=== PATIENT | female | born 1970 | race Caucasian/White ===

== ENCOUNTER 2018-02-25 14:30 | Inpatient (IN) | payer OTHER ==
[2018-02-25] MEDS ORDERED: Ativan 2 MG/1 ML VIAL IV PRN (15:19)
[2018-02-25] MEDS ORDERED: APRESOLINE 20 MG/ML INJ ONE (15:23)
[2018-02-25] MEDS: APRESOLINE 20 MG/ML INJ IV PRN ×2 (15:24→19:50)
[2018-02-25 15:30] LABS: BASOPHIL % 0.2 % (0.0-0.4); Basophil (Absolute #) 0.02 (0-0.4); Eosinophil % 3.5 % (0.00-5.0); Granulocyte Absolute (ANC) 6.35 (1.4-6.9); Granulocytes % 73.2 % (36.0-66.0); Hematocrit 35.4 % (35-47); Hemoglobin 12.5 gm/dl (12.0-16.0); Lymphocyte (Absolute #) 1.54 (1.0-4.6); Lymphocytes % 17.7 % (24.0-44.0); Mean Cell Volume 89.4 fl (78-100); Mean Corpuscular Hgb Concent. 35.3 g/dl (32-36); Mean Platelet Volume 11.2 fl (6-9.5); Monocyte (Absolute #) 0.47 (0.0-1.3); Monocytes % 5.4 % (0.0-12.0); Platelet Count 237 K/mm3 (150-450); Red Blood Count 3.96 M/mm3 (4.1-5.4); White Blood Count 8.7 K/mm3 (4.0-10.5)
[2018-02-25 15:32] LABS: Mean Corpuscular Hemoglobin 31.5 pg (26-32)
[2018-02-25 15:49] LABS: ALBUMIN 3.8 g/dL (3.5-5.0); ANION GAP 16.1 MEQ/L (5-15); BILIRUBIN,TOTAL 0.7 mg/dL (0.2-1.3); Calcium 8.7 mg/dL (8.4-10.2); Creatinine 1 3.74 mg/dL (0.52-1.04); Potassium 4.1 mmol/L (3.5-5.1); Total Protein 7.1 g/dL (6.3-8.2)
--- NOTE | 2018-02-25 15:53 | XRAY ---
Indication: Vision loss left eye for one week. High blood pressure. History of mini strokes. Multiple contiguous axial images obtained through the head without contrast. Comparison: January 06, 2016. Stable mild periventricular degenerative micro-ischemia bilaterally and remote left external capsule lacunar infarct. No acute intracranial hemorrhage, abnormal extra-axial fluid collection, or mass effect. Fourth ventricle is midline without hydrocephalus. [place] white matter differentiation preserved. Bony calvarium intact. Visualized paranasal sinuses and mastoid air cells are clear. Impression: 1. Stable degenerative micro-ischemia and remote left external capsule lacunar infarct. 2. No new or acute intracranial abnormalities. CTDI 69.52
--- NOTE | 2018-02-25 16:39 | XRAY ---
Indication: Possible stroke. Headache. Elevated blood pressure. Sagittal, coronal, and axial MRI brain was performed without contrast using T1, T2, FLAIR, diffusion, and ADC sequences. Comparison: None There are moderate periventricular confluence of T2 signal intensities bilaterally, a few appearing perpendicular to the corpus callosum (AKA Soto's finger). Additional T2 signal seen of the corpus callosum and brainstem lorin. Findings favor demyelinating process such as multiple sclerosis and less likely degenerative micro-ischemia. Tiny remote appearing lacunar infarcts in the left anterior hearn radiata and adjacent to both frontal horns, largest 7 mm adjacent to the left frontal horn. Additional tiny remote lacunar infarct in the left basal ganglia and right lorin. No acute intracranial hemorrhage, abnormal extra-axial fluid collection, or hydrocephalus. Diffusion images are negative for restricted signal. Fourth ventricle is midline. No hydrocephalus. 7/8 cranial nerve complex bilaterally symmetric. Normal flow void signal within the major intracerebral circulation. Normal appearing craniocervical junction and sella turcica. The orbits are bilaterally symmetric. Paranasal sinuses are clear. Impression: 1. [place] of T2 signal intensities in the periventricular white matter, corpus callosum, and brainstem favoring multiple sclerosis. 2. Multifocal remote lacunar infarcts as detailed. 2. No acute intracranial abnormalities or evidence for evolving large vessel territorial stroke.
[2018-02-25] MEDS ORDERED: NORVASC 5 MG PO ONE (17:13)
--- NOTE | 2018-02-25 17:23 | PCM.HP ---
History of Present Illness - Chief Complaint Chief Complaint: hypertensive emergency Date: 02/25/18 History of Present Illness: is a 47 year old female. presented to the office today after losing her vision last week in her left eye. She reports she was in penitentiary for 1 year for "my put me there for selling drugs but I wasn't doing that". She was on medications at the penitentiary she states but has not taken any since being released 1 year ago. She denies headache currently. Her vision has worsened. She denies chest pain or shortness of breath. She presented to ED 2 years ago after her eye doctor saw retinal hemorrhages and she had a blood pressure of 240 in the office. She was started on medication and was controlled at the follow up visit and went for a stress test that showed global hypokinesia but was lost to follow up after this. She has not had any evaluation of her renal function and unclear her baseline. She denies any use of illicit substances currently. She has had a new rash that is itching that she thinks was outside and had this start over the weekend. - Review of Systems Constitutional: No Fever, No Chills Eyes: Vision Changes Ears, Nose, & Throat: No Symptoms Respiratory: No Cough, No Short Of Breath Cardiac: No Chest Pain, No Edema, No Syncope Abdominal/Gastrointestinal: No Abdominal Pain, No Nausea, No Vomiting, No Diarrhea Genitourinary Symptoms: No Dysuria Musculoskeletal: Back Pain, Joint Pain, No Neck Pain Skin: Rash Neurological: No Dizziness, No Focal Weakness, No Gait Changes, No Sensory Changes Psychological: No Symptoms Endocrine: No Symptoms Hematologic/Lymphatic: No Symptoms Immunological/Allergic: No Symptoms Medications & Allergies Home Medications: Home Medication List No Reportable Medications [No Reported Medications] 02/25/18 [History Confirmed 02/25/18] Allergies/Adverse Reactions: Allergies Allergy/AdvReac Type Severity Reaction Status Date / Time ciprofloxacin [From Cipro] Allergy Verified 01/06/16 17:33 ciprofloxacin HCl Allergy Verified 01/06/16 17:33 [From Cipro] ketoprofen Allergy Verified 01/07/16 06:30 latex Allergy Verified 01/07/16 06:29 morphine Allergy Verified 01/07/16 06:37 prednisone Allergy Verified 01/07/16 06:29 - Past Medical History Past Medical History: Yes Neurological History: TIA ENT History: No Pertinent History Cardiac History: Hypertension Respiratory History: Asthma Endocrine Medical History: Diabetes Type II Musculoskelatal History: Arthritis GI Medical History: No Pertinent History History: No Pertinent History Pyscho-Social History: Anxiety, Depression Reproductive Disorders: No Pertinent History - Female History Are you now?: No - Past Surgical History Past Surgical History: Yes Neuro Surgical History: No Pertinent History Cardiac History: No Pertinent History Respiratory Surgery: No Pertinent History GI Surgical History: No Pertinent History Genitourinary Surgical Hx: No Pertinent History Musculskeletal Surgical Hx: No Pertinent History Female Surgical History: Section, Tubal Ligation, Other Other Surgical History: enlarged lymph node on neck removed - Social History Smoking Status: Former smoker Exposure to second hand smoke: No Alcohol: Rarely Drug Use: none - Physical Exam Vital Signs: Vital Signs - 24 hr Pulse Resp BP Pulse Ox 02/25/18 14:49 94 H 18 225/136 97 General Appearance: no apparent distress, alert Neurologic Exam: alert, oriented x 3, cooperative, normal mood/affect, nml cerebellar function, nml station & gait, sensation nml, abnormal mh teacher II-XII, No motor deficits Eye Exam: PERRL/EOMI, eyes nml inspection, No scleral icterus, No pale conjunctivae Ears, Nose, Throat Exam: normal ENT inspection, TMs normal, pharynx normal, moist mucous membranes Neck Exam: normal inspection, non-tender, supple, full range of motion Respiratory Exam: normal breath sounds, lungs clear, No respiratory distress Cardiovascular Exam: regular rate/rhythm, normal heart sounds, normal peripheral pulses Gastrointestinal/Abdomen Exam: soft, normal bowel sounds, No tenderness, No mass Back Exam: normal inspection, normal range of motion, No CVA tenderness, No vertebral tenderness Extremity Exam: normal inspection, normal range of motion, pelvis stable Skin Exam: normal color, warm, dry, rash (bilateral upper extremities with macular papular pruritic rash) Lymphatic Exam: No adenopathy Results - Labs Lab/Micro Results: Lab Results-Last 24 Hours 02/25/18 02/25/18 02/25/18 Range/Units 15:10 15:10 15:10 WBC 8.7 (4.0-10.5) K/mm3 RBC 3.96 L (4.1-5.4) M/mm3 Hgb 12.5 (12.0-16.0) gm/dl Hct 35.4 (35-47) % MCV 89.4 (78-100) fl MCH 31.5 (26-32) pg MCHC 35.3 (32-36) g/dl RDW 13.0 (11.5-14.0) % Plt Count 237 (150-450) K/mm3 MPV 11.2 H (6-9.5) fl Gran % 73.2 H (36.0-66.0) % Eos # (Auto) 0.30 (0-0.5) Absolute Lymphs (auto) 1.54 (1.0-4.6) Absolute Monos (auto) 0.47 (0.0-1.3) Lymphocytes % 17.7 L (24.0-44.0) % Monocytes % 5.4 (0.0-12.0) % Eosinophils % 3.5 (0.00-5.0) % Basophils % 0.2 (0.0-0.4) % Absolute Granulocytes 6.35 (1.4-6.9) Basophils # 0.02 (0-0.4) ESR 39 H (0-20) mm/hr Sodium 139 (137-145) mmol/L Potassium 4.1 (3.5-5.1) mmol/L Chloride 110 H (98-107) mmol/L Carbon Dioxide 17 L (22-30) mmol/L Anion Gap 16.1 H (5-15) MEQ/L BUN 48 H (7-17) mg/dL Creatinine 3.74 H (0.52-1.04) mg/dL Estimated GFR 13.8 ML/MIN Glucose 178 H (74-106) mg/dL Calcium 8.7 (8.4-10.2) mg/dL Total Bilirubin 0.70 (0.2-1.3) mg/dL AST 19 (14-36) U/L ALT 14 (0-35) U/L Alkaline Phosphatase 78 (38-126) U/L Serum Total Protein 7.1 (6.3-8.2) g/dL Albumin 3.8 (3.5-5.0) g/dL TSH 3rd Generation (0.47-4.68) mIU/L / Range/Units 15:10 WBC (4.0-10.5) K/mm3 RBC (4.1-5.4) M/mm3 Hgb (12.0-16.0) gm/dl Hct (35-47) % MCV (78-100) fl MCH (26-32) pg MCHC (32-36) g/dl RDW (11.5-14.0) % Plt Count (150-450) K/mm3 MPV (6-9.5) fl Gran % (36.0-66.0) % Eos # (Auto) (0-0.5) Absolute Lymphs (auto) (1.0-4.6) Absolute Monos (auto) (0.0-1.3) Lymphocytes % (24.0-44.0) % Monocytes % (0.0-12.0) % Eosinophils % (0.00-5.0) % Basophils % (0.0-0.4) % Absolute Granulocytes (1.4-6.9) Basophils # (0-0.4) ESR (0-20) mm/hr Sodium (137-145) mmol/L Potassium (3.5-5.1) mmol/L Chloride (98-107) mmol/L Carbon Dioxide (22-30) mmol/L Anion Gap (5-15) MEQ/L BUN (7-17) mg/dL Creatinine (0.52-1.04) mg/dL Estimated GFR ML/MIN Glucose (74-106) mg/dL Calcium (8.4-10.2) mg/dL Total Bilirubin (0.2-1.3) mg/dL AST (14-36) U/L ALT (0-35) U/L Alkaline Phosphatase (38-126) U/L Serum Total Protein (6.3-8.2) g/dL Albumin (3.5-5.0) g/dL TSH 3rd Generation 1.800 (0.47-4.68) mIU/L - Radiology Impressions Radiology Exams & Impressions: Radiology Procedures Category Date Time Status ECHO W/2D AND DOPPLER [US] Routine Exams 02/25/18 Ordered HEAD WITHOUT CONTRAST [CT] Stat Exams 02/25/18 15:15 Completed MRI BRAIN W/O CONTRAST [MRI] Routine Exams 02/25/18 15:19 Completed Assessment/Plan (1) Acute renal failure Current Visit: Yes Status: Acute Assessment & Plan: likely secondary to her uncontrolled blood pressure and likely has progressed to chronic renal failure with unreliable follow up and severity of symptoms check work up now and will plan f/u with nephrology uds is negative will get renal ultrasound, urine lytes, prot/cret, urine eosinophils (dip + protein and wbc), sophia, anca, urine spep, upep, free lyte chains. also checking high risk panel with her reported history of being jailed for 1 year due to drug offense but denies any drug use (2) Hypertensive emergency Current Visit: Yes Status: Acute Assessment & Plan: prn hydralazine, labetalol, start amlodipine back try to cautiously lower bp transition back to oral medications Code(s): I16.1 - HYPERTENSIVE EMERGENCY (3) Cardiomyopathy Current Visit: Yes Status: Chronic Assessment & Plan: repeat echocardiogram get cardiology f/u as well as outpatient Code(s): I42.9 - CARDIOMYOPATHY, UNSPECIFIED (4) LVH (left ventricular hypertrophy) Current Visit: Yes Status: Chronic Code(s): I51.7 - CARDIOMEGALY (5) Ischemic stroke Current Visit: Yes Status: Chronic Assessment & Plan: appears old lacunar on the MRI will use aspirin possible vision symptoms from the white matter lesions verses worsening of retinal hemorrhages that she had previously Code(s): I63.9 - CEREBRAL INFARCTION, UNSPECIFIED (6) Visual loss Current Visit: Yes Status: Acute Onset Date: ~02/25/18 Code(s): H54.7 - UNSPECIFIED VISUAL LOSS (7) White matter disease Current Visit: Yes Status: Acute Assessment & Plan: with possibility of MS doing the testing for hiv and myeloma will set up outpatient f/u when bp controlled with neurology to further discuss differential and possibly multiple sclerosis diagnosis Code(s): R90.82 - WHITE MATTER DISEASE, UNSPECIFIED
[2018-02-25] MEDS ORDERED: BENADRYL 25 MG CAPSULE PO ONE (17:30)
[2018-02-25] MEDS: Nicoderm CQ 21 MG TOP SCH (17:43)
[2018-02-25 17:57] LABS: Appearance HAZY (CLEAR); Bacteria FEW /HPF (NEGATIVE); Bilirubin NEGATIVE (NEGATIVE); Blood 50 Ery/ul (0-5); Epithelial Cells FEW /HPF (FEW); Glucose 250 mg/dL (NEGATIVE); Ketones SMALL (NEGATIVE); Leukocyte Esterase 2+ (NEGATIVE); Nitrite NEGATIVE (NEGATIVE); Protein,Urine Dip 500 (Negative); RBC 0-2 /HPF (0-2); Urobilinogen NORMAL mg/dL (0-1)
[2018-02-25] MEDS ORDERED: ENOXAPARIN SODIUM SQ SCH (18:00)
[2018-02-25 18:29] LABS: Amphetamine,Urine NEGATIVE (NEGATIVE); Barbiturate,Urine NEGATIVE (NEGATIVE); Benzodiazepine,Urine NEGATIVE (NEGATIVE); Cocaine,Urine NEGATIVE (NEGATIVE); Methadone,Urine NEGATIVE (NEGATIVE); Opiate,Urine NEGATIVE (NEGATIVE); PCP,Urine NEGATIVE (NEGATIVE); THC,Urine NEGATIVE (NEGATIVE)
[2018-02-25] MEDS ORDERED: TRANDATE 20 MG/5 ML SYRINGE IV PRN (19:05)
[2018-02-25] MEDS: TYLENOL 325 MG PO PRN (19:49)
[2018-02-25] MEDS: ECOTRIN 81 MG PO SCH (19:50)
[2018-02-26] MEDS: TYLENOL 325 MG PO PRN ×2 (00:01→08:11)
[2018-02-26] MEDS: APRESOLINE 20 MG/ML INJ IV PRN (00:02)
[2018-02-26 04:45] LABS: Hematocrit 35.7 % (35-47); Hemoglobin 12.8 gm/dl (12.0-16.0); Mean Cell Volume 90.2 fl (78-100); Mean Corpuscular Hemoglobin 32.3 pg (26-32); Mean Corpuscular Hgb Concent. 35.9 g/dl (32-36); Mean Platelet Volume 11.3 fl (6-9.5); Platelet Count 246 K/mm3 (150-450); Red Blood Count 3.96 M/mm3 (4.1-5.4); Red Cell Distribution Width 13.1 % (11.5-14.0); White Blood Count 11.1 K/mm3 (4.0-10.5)
[2018-02-26 04:47] LABS: ANION GAP 14.4 MEQ/L (5-15); Calcium 8.3 mg/dL (8.4-10.2); Creatinine 1 4.01 mg/dL (0.52-1.04); Potassium 4.1 mmol/L (3.5-5.1)
[2018-02-26] MEDS ORDERED: LIPITOR 40MG PO STA (07:51)
--- NOTE | 2018-02-26 08:02 | PCM.DS ---
Discharge Summary Date of Admission: 02/25/18 15:12 Date of Discharge: 02/26/2018 Admitting Physician: CLARA JOHNSON Primary Care Provider: CLARA JOHNSON Allergies Allergies ciprofloxacin [From Cipro] Allergy (Verified 01/06/16 17:33) ciprofloxacin HCl [From Cipro] Allergy (Verified 01/06/16 17:33) ketoprofen Allergy (Verified 01/07/16 06:30) latex Allergy (Verified 01/07/16 06:29) morphine Allergy (Verified 01/07/16 06:37) prednisone Allergy (Verified 01/07/16 06:29) Hospital Summary - Hospital Course Hospital Course: Patient presented to office yesterday afternoon with needing paperwork completed but also noted she had difficulty seeing out of her left eye 1 week prior, had not been to the doctor in 2 years and was not taking any of her medications. She was found to have a blood pressure of 240/140 and was sent for admission to ICU for rule out stroke. She was not having any chest pain at that time and was only having the visual loss that had occurred 1 week prior. On admission she was found to be in renal failure, had an MRI with old lacunar infarcts and white matter disease consistent with MS. She had her bp brought down with po amlodipine, iv hydralazine and iv labetalol. It initially did not improve much then went to 160's over 90 around 01:00 and she began developing substernal chest pain. EKG was done with no changes from admission and troponin was elevated. Her repeat troponin this am was trending upward but chest pain has resolved. She is now having a headache. Her creatinine has trended upward slightly as well. SHe had echocardiogram done this am with wall motion abnormalities and a renal ultrasound with official results pending. for her renal failure she has ultrasound, upep, spep, free light chains, sophia, p- anca, urine eosinophil smear and electrolytes pending she also has hiv, hep b, hep c pending. she was given aspirin on admission and now given metoprolol and atorvastatin she is on lovenox at ppx dose Discussed the case with cardiology Dr. Edge who agreed to consult at [facility] as well as with [facility] hospitalist Dr. Graham who agreed to accept the patient for transfer to progressive care unit at 09:45 - Vitals & Intake/Output Vital Signs: Vital Signs Temperature 98.3 F 05/15/18 07:15 Pulse Rate 82 02/26/18 07:15 Respiratory Rate 24 02/26/18 07:15 Blood Pressure 171/96 02/26/18 07:15 O2 Sat by Pulse Oximetry 96 02/26/18 07:15 Oxygen-Last Documented O2 Percentage 2 Liters = 28% Intake & Output: Intake & Output 02/23/18 02/24/18 02/25/18 02/26/18 11:59 11:59 11:59 11:59 Intake Total 1400 Output Total 1700 Balance -300 Weight 88.6 kg - Lab Result Diagrams: 02/26/18 04:15 02/26/18 04:15 Lab Results-Last 24 Hrs: Lab Results-Last 24 Hours 02/25/18 02/25/18 02/25/18 Range/Units 15:10 15:10 15:10 WBC 8.7 (4.0-10.5) K/mm3 RBC 3.96 L (4.1-5.4) M/mm3 Hgb 12.5 (12.0-16.0) gm/dl Hct 35.4 (35-47) % MCV 89.4 (78-100) fl MCH 31.5 (26-32) pg MCHC 35.3 (32-36) g/dl RDW 13.0 (11.5-14.0) % Plt Count 237 (150-450) K/mm3 MPV 11.2 H (6-9.5) fl Gran % 73.2 H (36.0-66.0) % Eos # (Auto) 0.30 (0-0.5) Absolute Lymphs (auto) 1.54 (1.0-4.6) Absolute Monos (auto) 0.47 (0.0-1.3) Lymphocytes % 17.7 L (24.0-44.0) % Monocytes % 5.4 (0.0-12.0) % Eosinophils % 3.5 (0.00-5.0) % Basophils % 0.2 (0.0-0.4) % Absolute Granulocytes 6.35 (1.4-6.9) Basophils # 0.02 (0-0.4) ESR 39 H (0-20) mm/hr Sodium 139 (137-145) mmol/L Potassium 4.1 (3.5-5.1) mmol/L Chloride 110 H (98-107) mmol/L Carbon Dioxide 17 L (22-30) mmol/L Anion Gap 16.1 H (5-15) MEQ/L BUN 48 H (7-17) mg/dL Creatinine 3.74 H (0.52-1.04) mg/dL Estimated GFR 13.8 ML/MIN Glucose 178 H (74-106) mg/dL Hemoglobin A1c (4.5-6.0) % Calcium 8.7 (8.4-10.2) mg/dL Phosphorus (2.5-4.5) mg/dL Total Bilirubin 0.70 (0.2-1.3) mg/dL AST 19 (14-36) U/L ALT 14 (0-35) U/L Alkaline Phosphatase 78 (38-126) U/L Troponin I (0.000-0.034) ng/mL Serum Total Protein 7.1 (6.3-8.2) g/dL Albumin 3.8 (3.5-5.0) g/dL TSH 3rd Generation (0.47-4.68) mIU/L Ur Collection Type Urine Color (YELLOW) Urine Appearance (CLEAR) Urine pH (5-6) Ur Specific Ke[place] (1.005-1.025) Urine Protein (Negative) Urine Ketones (NEGATIVE) Urine Blood (0-5) Giovanni/ul Urine Nitrite (NEGATIVE) Urine Bilirubin (NEGATIVE) Urine Urobilinogen (0-1) mg/dL Ur Leukocyte Esterase (NEGATIVE) Urine Microscopic RBC (0-2) /HPF Urine Microscopic WBC (0-5) /HPF Ur Epithelial Cells (FEW) /HPF Urine Bacteria (NEGATIVE) /HPF U Random Total Protein (0-12) mg/dL Urine Sodium (30-90) mmol/L Urine Glucose (NEGATIVE) mg/dL Urine Opiates Level (NEGATIVE) Ur Methadone (NEGATIVE) Urine Barbiturates (NEGATIVE) Ur Phencyclidine (PCP) (NEGATIVE) Urine Amphetamine (NEGATIVE) U Benzodiazepine Level (NEGATIVE) Urine Cocaine (NEGATIVE) Urine Marijuana (THC) (NEGATIVE) RPR Titer Add Testing Ur Chlamydia DNA Probe Urine GC DNA Probe Hep Bs Antigen Hep Bs Antibody, Quant Hepatitis C Ab (EIA) HIV Ag/Ab Combo Qual HIV 1&2 Antibody Interp Specimen Received 0502/25/18 02/25/18 Range/Units 15:10 15:20 15:20 WBC (4.0-10.5) K/mm3 RBC (4.1-5.4) M/mm3 Hgb (12.0-16.0) gm/dl Hct (35-47) % MCV (78-100) fl MCH (26-32) pg MCHC (32-36) g/dl RDW (11.5-14.0) % Plt Count (150-450) K/mm3 MPV (6-9.5) fl Gran % (36.0-66.0) % Eos # (Auto) (0-0.5) Absolute Lymphs (auto) (1.0-4.6) Absolute Monos (auto) (0.0-1.3) Lymphocytes % (24.0-44.0) % Monocytes % (0.0-12.0) % Eosinophils % (0.00-5.0) % Basophils % (0.0-0.4) % Absolute Granulocytes (1.4-6.9) Basophils # (0-0.4) ESR (0-20) mm/hr Sodium (137-145) mmol/L Potassium (3.5-5.1) mmol/L Chloride (98-107) mmol/L Carbon Dioxide (22-30) mmol/L Anion Gap (5-15) MEQ/L BUN (7-17) mg/dL Creatinine (0.52-1.04) mg/dL Estimated GFR ML/MIN Glucose (74-106) mg/dL Hemoglobin A1c 6.79 H (4.5-6.0) % Calcium (8.4-10.2) mg/dL Phosphorus (2.5-4.5) mg/dL Total Bilirubin (0.2-1.3) mg/dL AST (14-36) U/L ALT (0-35) U/L Alkaline Phosphatase (38-126) U/L Troponin I (0.000-0.034) ng/mL Serum Total Protein (6.3-8.2) g/dL Albumin (3.5-5.0) g/dL TSH 3rd Generation 1.800 (0.47-4.68) mIU/L Ur Collection Type Urine Color (YELLOW) Urine Appearance (CLEAR) Urine pH (5-6) Ur Specific [place] (1.005-1.025) Urine Protein (Negative) Urine Ketones (NEGATIVE) Urine Blood (0-5) Giovanni/ul Urine Nitrite (NEGATIVE) Urine Bilirubin (NEGATIVE) Urine Urobilinogen (0-1) mg/dL Ur Leukocyte Esterase (NEGATIVE) Urine Microscopic RBC (0-2) /HPF Urine Microscopic WBC (0-5) /HPF Ur Epithelial Cells (FEW) /HPF Urine Bacteria (NEGATIVE) /HPF U Random Total Protein 259 H (0-12) mg/dL Urine Sodium (30-90) mmol/L Urine Glucose (NEGATIVE) mg/dL Urine Opiates Level (NEGATIVE) Ur Methadone (NEGATIVE) Urine Barbiturates (NEGATIVE) Ur Phencyclidine (PCP) (NEGATIVE) Urine Amphetamine (NEGATIVE) U Benzodiazepine Level (NEGATIVE) Urine Cocaine (NEGATIVE) Urine Marijuana (THC) (NEGATIVE) RPR Titer Add Testing Ur Chlamydia DNA Probe Urine GC DNA Probe Hep Bs Antigen Hep Bs Antibody, Quant Hepatitis C Ab (EIA) HIV Ag/Ab Combo Qual HIV 1&2 Antibody Interp Specimen Received 02/25/18 02/25/18 02/25/18 Range/Units 16:00 17:00 17:00 WBC (4.0-10.5) K/mm3 RBC (4.1-5.4) M/mm3 Hgb (12.0-16.0) gm/dl Hct (35-47) % MCV (78-100) fl MCH (26-32) pg MCHC (32-36) g/dl RDW (11.5-14.0) % Plt Count (150-450) K/mm3 MPV (6-9.5) fl Gran % (36.0-66.0) % Eos # (Auto) (0-0.5) Absolute Lymphs (auto) (1.0-4.6) Absolute Monos (auto) (0.0-1.3) Lymphocytes % (24.0-44.0) % Monocytes % (0.0-12.0) % Eosinophils % (0.00-5.0) % Basophils % (0.0-0.4) % Absolute Granulocytes (1.4-6.9) Basophils # (0-0.4) ESR (0-20) mm/hr Sodium (137-145) mmol/L Potassium (3.5-5.1) mmol/L Chloride (98-107) mmol/L Carbon Dioxide (22-30) mmol/L Anion Gap (5-15) MEQ/L BUN (7-17) mg/dL Creatinine (0.52-1.04) mg/dL Estimated GFR ML/MIN Glucose (74-106) mg/dL Hemoglobin A1c (4.5-6.0) % Calcium (8.4-10.2) mg/dL Phosphorus (2.5-4.5) mg/dL Total Bilirubin (0.2-1.3) mg/dL AST (14-36) U/L ALT (0-35) U/L Alkaline Phosphatase (38-126) U/L Troponin I (0.000-0.034) ng/mL Serum Total Protein (6.3-8.2) g/dL Albumin (3.5-5.0) g/dL TSH 3rd Generation (0.47-4.68) mIU/L Ur Collection Type VOID Urine Color YELLOW (YELLOW) Urine Appearance HAZY (CLEAR) Urine pH 6.0 (5-6) Ur Specific [place] 1.010 (1.005-1.025) Urine Protein 500 (Negative) Urine Ketones SMALL (NEGATIVE) Urine Blood 50 (0-5) Giovanni/ul Urine Nitrite NEGATIVE (NEGATIVE) Urine Bilirubin NEGATIVE (NEGATIVE) Urine Urobilinogen NORMAL (0-1) mg/dL Ur Leukocyte Esterase 2+ (NEGATIVE) Urine Microscopic RBC 0-2 (0-2) /HPF Urine Microscopic WBC 2-5 (0-5) /HPF Ur Epithelial Cells FEW (FEW) /HPF Urine Bacteria FEW (NEGATIVE) /HPF U Random Total Protein (0-12) mg/dL Urine Sodium 96 H (30-90) mmol/L Urine Glucose 250 (NEGATIVE) mg/dL Urine Opiates Level NEGATIVE (NEGATIVE) Ur Methadone NEGATIVE (NEGATIVE) Urine Barbiturates NEGATIVE (NEGATIVE) Ur Phencyclidine (PCP) NEGATIVE (NEGATIVE) Urine Amphetamine NEGATIVE (NEGATIVE) U Benzodiazepine Level NEGATIVE (NEGATIVE) Urine Cocaine NEGATIVE (NEGATIVE) Urine Marijuana (THC) NEGATIVE (NEGATIVE) RPR Titer Add Testing Ur Chlamydia DNA Probe Urine GC DNA Probe Hep Bs Antigen Hep Bs Antibody, Quant Hepatitis C Ab (EIA) HIV Ag/Ab Combo Qual HIV 1&2 Antibody Interp Specimen Received 02/25/18 1700 02/25/18 02/26/18 02/26/18 Range/Units 19:23 01:04 04:15 WBC 11.1 H (4.0-10.5) K/mm3 RBC 3.96 L (4.1-5.4) M/mm3 Hgb 12.8 (12.0-16.0) gm/dl Hct 35.7 (35-47) % MCV 90.2 (78-100) fl MCH 32.3 H (26-32) pg MCHC 35.9 (32-36) g/dl RDW 13.1 (11.5-14.0) % Plt Count 246 (150-450) K/mm3 MPV 11.3 H (6-9.5) fl Gran % (36.0-66.0) % Eos # (Auto) (0-0.5) Absolute Lymphs (auto) (1.0-4.6) Absolute Monos (auto) (0.0-1.3) Lymphocytes % (24.0-44.0) % Monocytes % (0.0-12.0) % Eosinophils % (0.00-5.0) % Basophils % (0.0-0.4) % Absolute Granulocytes (1.4-6.9) Basophils # (0-0.4) ESR (0-20) mm/hr Sodium (137-145) mmol/L Potassium (3.5-5.1) mmol/L Chloride (98-107) mmol/L Carbon Dioxide (22-30) mmol/L Anion Gap (5-15) MEQ/L BUN (7-17) mg/dL Creatinine (0.52-1.04) mg/dL Estimated GFR ML/MIN Glucose (74-106) mg/dL Hemoglobin A1c (4.5-6.0) % Calcium (8.4-10.2) mg/dL Phosphorus (2.5-4.5) mg/dL Total Bilirubin (0.2-1.3) mg/dL AST (14-36) U/L ALT (0-35) U/L Alkaline Phosphatase (38-126) U/L Troponin I 0.186 H* (0.000-0.034) ng/mL Serum Total Protein (6.3-8.2) g/dL Albumin (3.5-5.0) g/dL TSH 3rd Generation (0.47-4.68) mIU/L Ur Collection Type Urine Color (YELLOW) Urine Appearance (CLEAR) Urine pH (5-6) Ur Specific [place] (1.005-1.025) Urine Protein (Negative) Urine Ketones (NEGATIVE) Urine Blood (0-5) Giovanni/ul Urine Nitrite (NEGATIVE) Urine Bilirubin (NEGATIVE) Urine Urobilinogen (0-1) mg/dL Ur Leukocyte Esterase (NEGATIVE) Urine Microscopic RBC (0-2) /HPF Urine Microscopic WBC (0-5) /HPF Ur Epithelial Cells (FEW) /HPF Urine Bacteria (NEGATIVE) /HPF U Random Total Protein (0-12) mg/dL Urine Sodium (30-90) mmol/L Urine Glucose (NEGATIVE) mg/dL Urine Opiates Level (NEGATIVE) Ur Methadone (NEGATIVE) Urine Barbiturates (NEGATIVE) Ur Phencyclidine (PCP) (NEGATIVE) Urine Amphetamine (NEGATIVE) U Benzodiazepine Level (NEGATIVE) Urine Cocaine (NEGATIVE) Urine Marijuana (THC) (NEGATIVE) RPR Titer Add Testing Pending Ur Chlamydia DNA Probe NEGATIVE Urine GC DNA Probe NEGATIVE Hep Bs Antigen Pending Hep Bs Antibody, Quant Pending Hepatitis C Ab (EIA) Pending HIV Ag/Ab Combo Qual Pending HIV 1&2 Antibody Interp Pending Specimen Received 02/26/18 02/26/18 02/26/18 Range/Units 04:15 04:15 04:15 WBC (4.0-10.5) K/mm3 RBC (4.1-5.4) M/mm3 Hgb (12.0-16.0) gm/dl Hct (35-47) % MCV (78-100) fl MCH (26-32) pg MCHC (32-36) g/dl RDW (11.5-14.0) % Plt Count (150-450) K/mm3 MPV (6-9.5) fl Gran % (36.0-66.0) % Eos # (Auto) (0-0.5) Absolute Lymphs (auto) (1.0-4.6) Absolute Monos (auto) (0.0-1.3) Lymphocytes % (24.0-44.0) % Monocytes % (0.0-12.0) % Eosinophils % (0.00-5.0) % Basophils % (0.0-0.4) % Absolute Granulocytes (1.4-6.9) Basophils # (0-0.4) ESR (0-20) mm/hr Sodium 136 L (137-145) mmol/L Potassium 4.1 (3.5-5.1) mmol/L Chloride 108 H (98-107) mmol/L Carbon Dioxide 18 L (22-30) mmol/L Anion Gap 14.4 (5-15) MEQ/L BUN 48 H (7-17) mg/dL Creatinine 4.01 H (0.52-1.04) mg/dL Estimated GFR 12.7 ML/MIN Glucose 204 H (74-106) mg/dL Hemoglobin A1c (4.5-6.0) % Calcium 8.3 L (8.4-10.2) mg/dL Phosphorus 5.1 H (2.5-4.5) mg/dL Total Bilirubin (0.2-1.3) mg/dL AST (14-36) U/L ALT (0-35) U/L Alkaline Phosphatase (38-126) U/L Troponin I 0.214 H* (0.000-0.034) ng/mL Serum Total Protein (6.3-8.2) g/dL Albumin (3.5-5.0) g/dL TSH 3rd Generation (0.47-4.68) mIU/L Ur Collection Type Urine Color (YELLOW) Urine Appearance (CLEAR) Urine pH (5-6) Ur Specific [place] (1.005-1.025) Urine Protein (Negative) Urine Ketones (NEGATIVE) Urine Blood (0-5) Giovanni/ul Urine Nitrite (NEGATIVE) Urine Bilirubin (NEGATIVE) Urine Urobilinogen (0-1) mg/dL Ur Leukocyte Esterase (NEGATIVE) Urine Microscopic RBC (0-2) /HPF Urine Microscopic WBC (0-5) /HPF Ur Epithelial Cells (FEW) /HPF Urine Bacteria (NEGATIVE) /HPF U Random Total Protein (0-12) mg/dL Urine Sodium (30-90) mmol/L Urine Glucose (NEGATIVE) mg/dL Urine Opiates Level (NEGATIVE) Ur Methadone (NEGATIVE) Urine Barbiturates (NEGATIVE) Ur Phencyclidine (PCP) (NEGATIVE) Urine Amphetamine (NEGATIVE) U Benzodiazepine Level (NEGATIVE) Urine Cocaine (NEGATIVE) Urine Marijuana (THC) (NEGATIVE) RPR Titer Add Testing Ur Chlamydia DNA Probe Urine GC DNA Probe Hep Bs Antigen Hep Bs Antibody, Quant Hepatitis C Ab (EIA) HIV Ag/Ab Combo Qual HIV 1&2 Antibody Interp Specimen Received Micro Results-Entire Visit: Microbiology 02/25/18 21:24 Urine Culture - Preliminary Clean Catch Midstream NO GROWTH TO DATE - Radiology Exams Ordered Rad Exams-Entire Visit: Radiology Procedures Category Date Time Status ECHO W/2D AND DOPPLER [US] Routine Exams 02/26/18 Ordered HEAD WITHOUT CONTRAST [CT] Stat Exams 02/25/18 15:15 Completed MRI BRAIN W/O CONTRAST [MRI] Routine Exams 02/25/18 15:19 Completed Renal Ultrasound [KIDNEY] [US] Routine Exams 02/26/18 09:00 Ordered - Procedures and Test Procedures and Tests throughout Hospitalization: Therapy Orders & Screens 02/25/18 15:12 EKG STAT Comment: 02/25/18 17:18 Smoking Cessation Education ONCE Comment: Diagnosis: hypertensive emergency Smoking Status: Current every day smoker How long have you smoked: 30 years Have you smoked in the past 12 months: Yes Approximately how many cigarettes per day: 15 Do you dip or chew tobacco: No 02/26/18 00:47 EKG ROUTINE Comment: Diagnosis: hypertensive emergency 02/26/18 00:58 Oxygen NASAL CANNULA 2 lpm Comment: TO KEEP SPO2 >92% PER R.T. PROTOCOL Diagnosis: hypertensive emergency Discharge Exam General Appearance: no apparent distress, alert Neurologic Exam: alert, oriented x 3, cooperative, normal mood/affect, nml cerebellar function, sensation nml, abnormal hvac refrigeration technician II-XII, No motor deficits Skin Exam: normal color, warm, dry Eye Exam: PERRL, EOMI, eyes nml inspection, other (visual guajardo intact to confrontation bilateral nonspecific blury per patient) Ears, Nose, Throat Exam: normal ENT inspection, pharynx normal, moist mucous membranes Neck Exam: normal inspection, non-tender, supple, full range of motion Respiratory Exam: normal breath sounds, lungs clear, No respiratory distress Cardiovascular Exam: regular rate/rhythm, normal heart sounds Gastrointestinal/Abdomen Exam: soft, No tenderness, No mass Extremity Exam: normal inspection, normal range of motion Back Exam: normal inspection, normal range of motion, No CVA tenderness, No vertebral tenderness Pelvic Exam: deferred Rectal Exam: deferred Final Diagnosis/Problem List - Final Discharge Diagnosis/Problem (1) NSTEMI (non-ST elevated myocardial infarction) Current Visit: Yes Status: Acute (2) Acute renal failure Current Visit: Yes Status: Acute (3) Hypertensive emergency Current Visit: Yes Status: Acute (4) Cardiomyopathy Current Visit: Yes Status: Chronic (5) LVH (left ventricular hypertrophy) Current Visit: Yes Status: Chronic (6) Ischemic stroke Current Visit: Yes Status: Chronic (7) White matter disease Current Visit: Yes Status: Acute - Discharge Disposition: Home, Self-Care Condition: Stable Prescriptions: No Action No Reportable Medications [No Reported Medications] Follow up with: CLARA JOHNSON [Primary Care Provider] - 1 Week
[2018-02-26] MEDS ORDERED: Phenergan 25 MG INJ IV ONE (08:08)
[2018-02-26] MEDS ORDERED: NovoLOG Insulin SQ PRN (08:12)
[2018-02-26] MEDS: Nicoderm CQ 21 MG TOP SCH (08:13)
[2018-02-26] MEDS: ECOTRIN 81 MG PO SCH (08:13)
[2018-02-26] MEDS ORDERED: NORVASC 5 MG PO SCH (10:00)
[2018-02-26] MEDS ORDERED: Lopressor 25MG Tab PO SCH (10:00)
[2018-02-26 10:29] VITALS: BP 152/97; PULSE 69; O2SAT 96
--- NOTE | 2018-02-26 10:37 | XRAY ---
Indication: Renal failure. Two-dimensional renal sonogram performed. Comparison: None Both kidneys normal in reniform shape with normal color perfusion. Right kidney measures 10.0 x 4.9 x 5.5 cm and the left measures 10.0 x 5.1 x 5.3 cm. No solid/cystic renal mass or hydronephrosis. Cortical medullary differentiation preserved without cortical thinning. Images of the nominally distended urinary bladder unremarkable. Normal bilateral ureteral jets. Impression: Negative renal sonogram.
--- NOTE | 2018-02-26 11:34 | ECHO ---
DATE OF PROCEDURE: 02/26/2018 CLINICAL INFORMATION: Cardiomyopathy associated with a stroke. The M-mode 2D, and Doppler echocardiogram including color flow Doppler shows mild decrease in left ventricular systolic function with ejection fraction between 45 and 50%. There is diffuse hypokinesis present. The left ventricle is normal in size at 4.5 cm. There is severe left ventricular hypertrophy with septal wall thickness of 2.0 cm. The left ventricular posterior wall thickness is normal at 2.0 cm. There is no apical thrombus present. The right ventricle appear to be normal in size and function. The left atrium is mildly dilated with a dimension of 4.6 cm. The interatrial septum is intact. The right atrium is normal. The aortic valve opens well. There is mild mitral regurgitation associated with evidence of papillary muscle dysfunction. There is mild tricuspid regurgitation with evidence of moderate pulmonary hypertension. The right ventricular systolic pressure is calculated to be 42 mm of Mercury. The pulmonic valve is not well visualized. The aortic root is normal at 3.6 cm. There is small pericardial effusion involving the right atrial area. There is no evidence of cardiac tamponade. IMPRESSION: 1) MILD DECREASE IN LEFT VENTRICULAR SYSTOLIC FUNCTION. 2) SEVERE LEFT VENTRICULAR HYPERTROPHY. 3) MILD LEFT ATRIAL DILATATION. 4) MILD TRICUSPID REGURGITATION. 5) MODERATE PULMONARY HYPERTENSION. 6) MILD MITRAL REGURGITATION ASSOCIATED WITH EVIDENCE OF PAPILLARY MUSCLE DYSFUNCTION. 7) SMALL PERICARDIAL EFFUSION PRESENT.
[2018-02-26] MEDS ORDERED: ENOXAPARIN SODIUM SQ SCH (18:00)
[2018-02-27 05:46] LABS: Creatinine,Random Urine 40.1 mg/dL; Protein/Creatinine Ratio 4.26 mg/mg (0.00-0.19)
[2018-02-27 07:37] LABS: Kappa Free Light Chain 61.4 mg/L (0.0-22.2); Kappa Lambda Ratio 1.161 (0.410-1.430); Lambda Free Light Chain 52.9 mg/L (0.0-34.4)
[2018-02-27 07:59] LABS: PTH INTACT 201 pg/mL (15-72)
[2018-02-27 10:49] LABS: ANA IgG Screen Positive (Neg. at 1:80); ANA Pattern Speckled
[2018-02-27 12:46] LABS: Urin Protein Gamma Globulin 11.3 %; Urine Protein Beta 10.7 %
[2018-02-27 12:47] LABS: ANA Pattern Interp Detail See Result Note:
[2018-02-27 15:16] LABS: RPR with Quantitation Non Reactive (Non Reactive)
[2018-02-28 10:15] LABS: PROTEIN BETA 2 0.36 g/dL (0.18-0.50); Protein Beta 1 0.38 g/dL (0.35-0.66)
== END 2018-02-26 11:00 | disposition home or self-care (01) | DRG 280 ==
LOC: ICU 14:34 → OBSVTOIN 15:12
PROVIDERS: ADMIT Family Medicine; ATTEND Family Medicine
DX: I21.4 Non-ST elevation (NSTEMI) myocardial infarction (principal); I63.9 Cerebral infarction, unspecified; N17.9 Acute kidney failure, unspecified; I42.9 Cardiomyopathy, unspecified; I16.0 Hypertensive urgency; I51.7 Cardiomegaly; R90.82 White matter disease, unspecified; I10 Essential (primary) hypertension; J45.909 Unspecified asthma, uncomplicated; E11.9 Type 2 diabetes mellitus without complications; F41.8 Other specified anxiety disorders; Z86.73 Personal history of transient ischemic attack (TIA), and cerebral infarction without residual deficits
CPT/HCPCS: 36415; 70450; 70551; 76770; 80048; 80053; 80307; 81000; 82570; 82664; 83036; 83883; 83970; 84100; 84155; 84156; 84166; 84300; 84443; 84484; 85025; 85027; 85652; 86038; 86255; 86256; 86317; 86334; 86701; 86702; 86803; 87086; 87205; 87340; 87389; 87491; 87591; 93005; 93306; J0360; J1650; J2550; A9270-GY